=== PATIENT | male | born 1975 | race Caucasian/White ===

== ENCOUNTER 2020-06-06 17:22 | Inpatient (IN) | payer BC ==
--- NOTE | 2020-06-06 17:46 | ED ---
General Adult HPI - General Chief complaint: Shortness of Breath Stated complaint: COVID Time Seen by Provider: 06/06/20 17:41 Source: patient, EMS Mode of arrival: EMS Limitations: no limitations - History of Present Illness Initial comments: Patient presents the ED by ambulance for evaluation. Patient states that he was exposed to a coworker who tested positive for Covid about one week ago, and he states that he has had symptoms of fever, cough and dyspnea for the past 3 days or so. Patient denies having any other symptoms or complaints. Patient denies having any pain, headache, focal neuro deficit, sore throat, otalgia, loss of smell or taste, chest pain, hemoptysis, palpitations, dizziness, abdominal pain, nausea/vomiting/diarrhea, dysuria/hematuria/urinary frequency/urinary symptoms, leg or calf swelling or pain, or any other symptoms or complaints. - Related Data Home Medications Medication Instructions Recorded Confirmed No Known Home Medications 06/06/20 06/06/20 Allergies Allergy/AdvReac Type Severity Reaction Status Date / Time Penicillins Allergy Rash/Hives Verified 06/06/20 19:53 Review of Systems ROS Statement: Those systems with pertinent positive or pertinent negative responses have been documented in the HPI. ROS Other: All systems not noted in ROS Statement are negative. Past Medical History Past Medical History: No Reported History Additional Past Medical History / Comment(s): cleft palatte History of Any Multi-Drug Resistant Organisms: None Reported Additional Past Surgical History / Comment(s): cleft palatte repair Past Psychological History: No Psychological Hx Reported Smoking Status: Never smoker Past Alcohol Use History: None Reported Past Drug Use History: None Reported General Exam Limitations: no limitations General appearance: alert, in no apparent distress Head exam: Present: atraumatic, normocephalic Eye exam: Present: normal appearance, EOMI ENT exam: Present: normal oropharynx, mucous membranes moist Neck exam: Present: other (Trachea is in midline). Absent: tenderness, meningismus Respiratory exam: Present: normal lung sounds bilaterally. Absent: respiratory distress, wheezes, rales, rhonchi, stridor Cardiovascular Exam: Present: regular rate, normal rhythm, normal heart sounds, other (Normal radial pulses bilaterally) GI/Abdominal exam: Present: soft, other (Obese abdomen). Absent: tenderness, guarding Extremities exam: Present: other (Negative Homans sign bilaterally). Absent: tenderness, pedal edema, calf tenderness Neurological exam: Present: alert, oriented X3. Absent: motor sensory deficit Psychiatric exam: Present: normal affect, normal mood Skin exam: Present: warm, dry, intact, normal color Course Vital Signs 06/06/20 06/06/20 06/06/20 17:38 18:40 19:00 Temperature 101.5 F H 101.5 F H Pulse Rate 103 H 92 90 Respiratory 22 20 20 Rate Blood Pressure 158/85 144/74 138/84 O2 Sat by Pulse 97 94 L 95 Oximetry 06/06/20 19:23 Temperature Pulse Rate Respiratory 22 Rate Blood Pressure O2 Sat by Pulse Oximetry - Reevaluation(s) Reevaluation #1: 06/06/20 19:49 Patient denies development of any new symptoms while in the ED. Patient remains alert and breathing comfortably. Patient is aware of his test results, and he agrees with hospital admission at this time. 06/06/20 19:53 Case, H&P, test results and ED management were discussed with RACHEL Payan. She accepts hospital admission on behalf of herself and Dr. Price. She has no further recommendations at this time. EKG Findings - EKG Comments: EKG Findings:: Normal sinus rhythm, ventricular rate of 94 bpm, no ectopy, normal NE and QRS intervals, normal QT interval, leftward axis, no ST or T-wave abnormality Medical Decision Making - Medical Decision Making I suspect that the patient likely has coronavirus infection (his test result is still pending at this time). Patient also has chest x-ray findings of pneumonia. Will admit the patient to the hospital for IV antibiotic treatment and close monitoring. RACHEL Payan has accepted hospital admission. - Lab Data Result diagrams: 06/06/20 18:39 06/06/20 18:39 Lab Results 06/06/20 06/06/20 06/06/20 Range/Units 18:39 18:39 18:39 WBC 5.8 (3.8-10.6) k/uL RBC 4.98 (4.30-5.90) m/uL Hgb 13.8 (13.0-17.5) gm/dL Hct 42.6 (39.0-53.0) % MCV 85.6 (80.0-100.0) fL MCH 27.8 (25.0-35.0) pg MCHC 32.5 (31.0-37.0) g/dL RDW 13.3 (11.5-15.5) % Plt Count 180 (150-450) k/uL Neutrophils % 69 % Lymphocytes % 24 % Monocytes % 6 % Eosinophils % 0 % Basophils % 1 % Neutrophils # 4.0 (1.3-7.7) k/uL Lymphocytes # 1.4 (1.0-4.8) k/uL Monocytes # 0.3 (0-1.0) k/uL Eosinophils # 0.0 (0-0.7) k/uL Basophils # 0.0 (0-0.2) k/uL PT 10.7 (9.0-12.0) sec INR 1.0 (<1.2) APTT 30.2 H (22.0-30.0) sec D-Dimer 0.43 (<0.60) mg/L FEU Sodium 135 L (137-145) mmol/L Potassium 4.2 (3.5-5.1) mmol/L Chloride 100 (98-107) mmol/L Carbon Dioxide 26 (22-30) mmol/L Anion Gap 9 mmol/L BUN 9 (9-20) mg/dL Creatinine 0.51 L (0.66-1.25) mg/dL Est GFR (CKD-EPI)AfAm >90 (>60 ml/min/1.73 sqM) Est GFR (CKD-EPI)NonAf >90 (>60 ml/min/1.73 sqM) Glucose 109 H (74-99) mg/dL Plasma Lactic Acid Yousif (0.7-2.0) mmol/L Calcium 8.2 L (8.4-10.2) mg/dL Magnesium 2.1 (1.6-2.3) mg/dL Total Bilirubin 0.7 (0.2-1.3) mg/dL AST 38 (17-59) U/L ALT 36 (4-49) U/L Alkaline Phosphatase 52 (38-126) U/L Lactate Dehydrogenase 916 H (313-618) U/L C-Reactive Protein 69.5 H (<10.0) mg/L Total Protein 6.7 (6.3-8.2) g/dL Albumin 3.7 (3.5-5.0) g/dL Influenza Type A RNA (Not Detectd) Influenza Type B (PCR) (Not Detectd) 06/06/20 06/06/20 Range/Units 18:39 19:00 WBC (3.8-10.6) k/uL RBC (4.30-5.90) m/uL Hgb (13.0-17.5) gm/dL Hct (39.0-53.0) % MCV (80.0-100.0) fL MCH (25.0-35.0) pg MCHC (31.0-37.0) g/dL RDW (11.5-15.5) % Plt Count (150-450) k/uL Neutrophils % % Lymphocytes % % Monocytes % % Eosinophils % % Basophils % % Neutrophils # (1.3-7.7) k/uL Lymphocytes # (1.0-4.8) k/uL Monocytes # (0-1.0) k/uL Eosinophils # (0-0.7) k/uL Basophils # (0-0.2) k/uL PT (9.0-12.0) sec INR (<1.2) APTT (22.0-30.0) sec D-Dimer (<0.60) mg/L FEU Sodium (137-145) mmol/L Potassium (3.5-5.1) mmol/L Chloride (98-107) mmol/L Carbon Dioxide (22-30) mmol/L Anion Gap mmol/L BUN (9-20) mg/dL Creatinine (0.66-1.25) mg/dL Est GFR (CKD-EPI)AfAm (>60 ml/min/1.73 sqM) Est GFR (CKD-EPI)NonAf (>60 ml/min/1.73 sqM) Glucose (74-99) mg/dL Plasma Lactic Acid Yousif 1.6 (0.7-2.0) mmol/L Calcium (8.4-10.2) mg/dL Magnesium (1.6-2.3) mg/dL Total Bilirubin (0.2-1.3) mg/dL AST (17-59) U/L ALT (4-49) U/L Alkaline Phosphatase (38-126) U/L Lactate Dehydrogenase (313-618) U/L C-Reactive Protein (<10.0) mg/L Total Protein (6.3-8.2) g/dL Albumin (3.5-5.0) g/dL Influenza Type A RNA Not Detected (Not Detectd) Influenza Type B (PCR) Not Detected (Not Detectd) - Radiology Data Radiology results: image reviewed (Chest x-ray: Bilateral pulmonary infiltrates consistent with pneumonia, cardiomegaly) Disposition Clinical Impression: Pneumonia Disposition: ADMITTED IP TO THIS [facility] Condition: Stable Is patient prescribed a controlled substance at d/c from ED?: No Referrals: Bishop Iglesias MD [Primary Care Provider] - 1-2 days Time of Disposition: 19:53
[2020-06-06] MEDS ORDERED: ACETAMINOPHEN TAB 500 MG TAB PO STA (17:49)
[2020-06-06 19:00] LABS: Basophils % (A) 1 %; Eosinophils % (A) 0 %; HCT 42.6 % (39.0-53.0); HGB 13.8 gm/dL (13.0-17.5); Lymphocytes # (A) 1.4 k/uL (1.0-4.8); Lymphocytes % (A) 24 %; MCH 27.8 pg (25.0-35.0); MCHC 32.5 g/dL (31.0-37.0); MCV 85.6 fL (80.0-100.0); Mean Platelet Volume 8.3; Monocytes # (A) 0.3 k/uL (0-1.0); Monocytes % (A) 6 %; Neutrophils % (A) 69 %; Platelet Count 180 k/uL (150-450); RBC 4.98 m/uL (4.30-5.90); RDW 13.3 % (11.5-15.5); WBC 5.8 k/uL (3.8-10.6)
--- NOTE | 2020-06-06 19:06 | XR ---
EXAMINATION TYPE: XR chest 1V portable DATE OF EXAM: 06/06/2020 COMPARISON: NONE HISTORY: Cough and congestion TECHNIQUE: Single view FINDINGS: Heart is enlarged. There is some patchy bilateral airspace infiltrates in the mid and lower lung lopez. Pulmonary vascularity is difficult to evaluate. I do not suspect heart failure. There i s no sign of pleural effusion. Exam limited by patient's size. IMPRESSION: Bilateral pulmonary infiltrates consistent with pneumonia. Cardiomegaly. No definite hear t failure seen.
[2020-06-06 19:15] LABS: ALT 36 U/L (4-49); AST 38 U/L (17-59); African American GFR (CKD) >90 (>60 ml/min/1.73 sqM); Albumin 3.7 g/dL (3.5-5.0); Alkaline Phosphatase 52 U/L (38-126); Anion Gap 9 mmol/L; Blood Urea Nitrogen 9 mg/dL (9-20); C Reactive Protein 69.5 mg/L (<10.0); Calcium 8.2 mg/dL (8.4-10.2); Carbon Dioxide 26 mmol/L (22-30); Chloride 100 mmol/L (98-107); Glucose 109 mg/dL (74-99); LDH 916 U/L (313-618); Magnesium 2.1 mg/dL (1.6-2.3); Non-African American GFR(CKD) >90 (>60 ml/min/1.73 sqM); Potassium 4.2 mmol/L (3.5-5.1); Sodium 135 mmol/L (137-145); Total Bilirubin 0.7 mg/dL (0.2-1.3); Total Protein 6.7 g/dL (6.3-8.2)
[2020-06-06] MEDS ORDERED: AZITHROMYCIN 500 MG in SODIUM CHLORIDE 0.9% 250 ML IVPB STA (19:17)
[2020-06-06 19:46] LABS: D-Dimer 0.43 mg/L FEU (<0.60); Partial Thromboplastin Time 30.2 sec (22.0-30.0); Prothrombin Time 10.7 sec (9.0-12.0)
[2020-06-06] MEDS ORDERED: SODIUM CHLORIDE 0.9% 1,000 ML IV ONE (19:49)
[2020-06-06] MEDS: SODIUM CHLORIDE 0.9% 1,000 ML IV SCH (21:27)
[2020-06-07] MEDS: IBUPROFEN 800 MG TAB PO PRN ×2 (02:07→11:24)
[2020-06-07] MEDS: SODIUM CHLORIDE 0.9% 1,000 ML IV SCH ×3 (05:35→21:34)
[2020-06-07 06:13] LABS: HGB 13.8 gm/dL (13.0-17.5); MCHC 32.2 g/dL (31.0-37.0); Mean Platelet Volume 7.5; Platelet Count 156 k/uL (150-450); RBC 4.77 m/uL (4.30-5.90); RDW 13.2 % (11.5-15.5); WBC 6.1 k/uL (3.8-10.6)
[2020-06-07 07:03] LABS: Band Neutrophils % 11 %; Monocytes # (M) 0.37 k/uL (0-1.0); Neutrophils % (M) 47 %; Nucleated Red Blood Cells 0 /100 WBC (0-0); Total Cells Counted 100
[2020-06-07 10:54] LABS: African American GFR (CKD) 131.2 (60.0-200.0); BUN/Creat Ratio 14.29 Ratio (12.00-20.00); Non-African American GFR(CKD) 113.2 (60.0-200.0); Potassium 4.4 mmol/L (3.5-5.5)
--- NOTE | 2020-06-07 14:34 | P.HPIM ---
History of Present Illness Given with compensative shortness of breath, fever. Patient states that he was exposed to a coworker who tested positive for Covid about one week ago, and he states that he has had symptoms of fever, cough and dyspnea for the past 3 days or so. Patient denies having any other symptoms or complaints. Patient denies having any pain, headache, focal neuro deficit, sore throat, otalgia, loss of smell or taste, chest pain, hemoptysis, palpitations, dizziness, abdominal pain, nausea/vomiting/diarrhea, dysuria/hematuria/urinary frequency/urinary symptoms, leg or calf swelling or pain, or any other symptoms or complaints. She had a chest x-ray which showed bilateral pneumonia. Patient is presently on 3 L of oxygen. Patient was given a dose of Rocephin and azithromycin. Patient was started on Decadron, Pepcid and Lovenox. Review of Systems REVIEW OF SYSTEMS: CONSTITUTIONAL: No fever, no malaise, no fatigue. HEENT: No recent visual problems or hearing problems. Denied any sore throat. CARDIOVASCULAR: No chest pain, orthopnea, PND, no palpitations, no syncope. PULMONARY: Mentioned in HPI GASTROINTESTINAL: No diarrhea, no nausea, no vomiting, no abdominal pain. NEUROLOGICAL: No headaches, no weakness, no numbness. HEMATOLOGICAL: Denies any bleeding or petechiae. GENITOURINARY: Denies any burning micturition, frequency, or urgency. MUSCULOSKELETAL/RHEUMATOLOGICAL: Denies any joint pain, swelling, or any muscle pain. ENDOCRINE: Denies any polyuria or polydipsia. The rest of the 14-point review of systems is negative. Past Medical History Past Medical History: No Reported History Additional Past Medical History / Comment(s): Cleft palette History of Any Multi-Drug Resistant Organisms: None Reported Additional Past Surgical History / Comment(s): Cleft palatte repair Past Anesthesia/Blood Transfusion Reactions: No Reported Reaction Past Psychological History: No Psychological Hx Reported Smoking Status: Never smoker Past Alcohol Use History: None Reported Past Drug Use History: None Reported Medications and Allergies Home Medications Medication Instructions Recorded Confirmed Type No Known Home Medications 06/06/20 06/06/20 History Allergies Allergy/AdvReac Type Severity Reaction Status Date / Time Penicillins Allergy Rash/Hives Verified 06/06/20 19:53 Physical Exam Vitals: Vital Signs Temp Pulse Pulse Resp BP BP Pulse Ox 10/12/20 14:29 99.0 F 87 20 138/66 92 L 06/07/20 11:25 99.7 F H 06/07/20 07:00 98.5 F 75 26 H 133/56 94 L 06/07/20 05:30 98.3 F 06/07/20 02:30 101.9 F H 06/07/20 01:26 103.1 F H 93 20 144/68 93 L 06/06/20 21:10 99.3 F 85 20 135/80 96 06/06/20 20:36 86 20 129/76 96 06/06/20 20:00 100.0 F H 84 20 142/83 96 06/06/20 19:23 22 06/06/20 19:00 90 20 138/84 95 06/06/20 18:40 101.5 F H 92 20 144/74 94 L 06/06/20 17:38 101.5 F H 103 H 22 158/85 97 Intake and Output 06/06/20 06/07/20 06/07/20 22:59 06:59 14:59 Intake Total 1000 Balance 1000 Intake: Amount of Fluid Infused ( 1000 ml) Other: Voiding Method Toilet # Voids 1 2 Weight 124.738 kg PHYSICAL EXAMINATION: GENERAL: The patient is alert and oriented x3, not in any acute distress. Obese HEENT: Pupils are round and equally reacting to light. EOMI. No scleral icterus. No conjunctival pallor. Normocephalic, atraumatic. No pharyngeal erythema. No thyromegaly. CARDIOVASCULAR: S1 and S2 present. No murmurs, rubs, or gallops. PULMONARY: Fair entry into bilateral lung lopez no significant wheezing or crackles were appreciated ABDOMEN: Soft, nontender, nondistended, normoactive bowel sounds. No palpable organomegaly. MUSCULOSKELETAL: No joint swelling or deformity. EXTREMITIES: No cyanosis, clubbing, or pedal edema. NEUROLOGICAL: Gross neurological examination did not reveal any focal deficits. SKIN: No rashes. Results CBC & Chem 7: 06/07/20 05:37 06/07/20 05:37 Labs: Abnormal Lab Results - Last 24 Hours (Table) 06/06/20 06/06/20 06/06/20 Range/Units 18:39 18:39 18:39 APTT 30.2 H (22.0-30.0) sec Sodium 135 L (137-145) mmol/L Creatinine 0.51 L (0.66-1.25) mg/dL Glucose 109 H (74-99) mg/dL Calcium 8.2 L (8.4-10.2) mg/dL Ferritin 1111.0 H (22.0-322.0) ng/mL Lactate Dehydrogenase 916 H (313-618) U/L C-Reactive Protein 69.5 H (<10.0) mg/L Procalcitonin 0.37 H (0.02-0.09) ng/mL 06/07/20 Range/Units 05:37 APTT (22.0-30.0) sec Sodium (137-145) mmol/L Creatinine (0.66-1.25) mg/dL Glucose (74-99) mg/dL Calcium 8.0 L (8.4-10.2) mg/dL Ferritin (22.0-322.0) ng/mL Lactate Dehydrogenase (313-618) U/L C-Reactive Protein (<10.0) mg/L Procalcitonin (0.02-0.09) ng/mL Thrombosis Risk Factor Assmnt - Choose All That Apply Any of the Below Risk Factors Present?: Yes Each Factor Represents 1 point: Age 41-60 years Other Risk Factors: No Other congenital or acquired thrombophilia - If yes, enter type in comment: No Thrombosis Risk Factor Assessment Total Risk Factor Score: 1 Thrombosis Risk Factor Assessment Level: Low Risk Assessment and Plan Plan: -Bilateral pneumonia, sepsis secondary to pneumonia: Most probably secondary to Covid 19, patient had a positive rapid test as an outpatient. In awaiting PCR. Patient will be started on Decadron, Lovenox, Pepcid. infectious disease and pulmonary will be consulted. And now will continue in the above-mentioned antibiotics. Still get the coronavirus testing if it's positive Rocephin can be discontinued. -Acute hypoxic respiratory failure: Secondary to Covid 19 pneumonitis and patient had a normal d-dimer. -Morbid obesity -DVT prophylaxis and GI prophylaxis as mentioned
[2020-06-07] MEDS: ENOXAPARIN 40 MG/0.4 ML SYRINGE SQ SCH (15:06)
[2020-06-07] MEDS: AZITHROMYCIN 500 MG TAB PO SCH (15:06)
[2020-06-07] MEDS: dexAMETHasone 4 MG TAB PO SCH (15:07)
[2020-06-07] MEDS: FAMOTIDINE 20 MG TAB PO SCH (21:32)
--- NOTE | 2020-06-07 23:03 | P.CONS ---
History of Present Illness - Reason for Consult Consult date: 06/07/20 Possible Covid Requesting physician: Sylwia Price - Chief Complaint Cough and fever x 3 days - History of Present Illness Patient is 44-year-old male Presenting to the ER yesterday for increasing shortness of breath cough and fever the symptom has going on for about 3 days apparently the patient has been exposed to his coworker whose was diagnosed with a covid he was not very clear if the coworker also has covid infection, patient has been complaining of increasing shortness of breath also have a cough which is moderate in intensity and is dry in nature not bringing up any sputum denies significant chest pain has been running a fever of 101F with these symptoms the patient presented to hospital on arrival. The patient was febrile with temperature 101.1F, patient had did have a some hypoxemia with O2 sats 92% requiring supplemental oxygen patient did have a normal white count and no lymphopenia did have normal liver enzymes he did have elevated CRP as well as Propulsid to chest x-ray with bilateral infiltrate suspicious for pneumonia p jensient has been admitted to the hospital he was started on Rocephin and Zithromax infectious disease was consulted for further management of antibiotic therapy Review of Systems Positive point has been mentioned in the HPI rest of the systems are negative Past Medical History Past Medical History: No Reported History Additional Past Medical History / Comment(s): Cleft palette History of Any Multi-Drug Resistant Organisms: None Reported Additional Past Surgical History / Comment(s): Cleft palatte repair Past Anesthesia/Blood Transfusion Reactions: No Reported Reaction Past Psychological History: No Psychological Hx Reported Smoking Status: Never smoker Past Alcohol Use History: None Reported Past Drug Use History: None Reported Medications and Allergies Home Medications Medication Instructions Recorded Confirmed Type No Known Home Medications 06/06/20 06/06/20 History Allergies Allergy/AdvReac Type Severity Reaction Status Date / Time Penicillins Allergy Rash/Hives Verified 06/06/20 19:53 Physical Exam Vitals: Vital Signs Temp Pulse Pulse Resp BP BP Pulse Ox 06/07/20 14:29 99.0 F 87 20 138/66 92 L 06/07/20 11:25 99.7 F H 06/07/20 07:00 98.5 F 75 26 H 133/56 94 L 06/07/20 05:30 98.3 F 06/07/20 02:30 101.9 F H 06/07/20 01:26 103.1 F H 93 20 144/68 93 L 06/06/20 21:10 99.3 F 85 20 135/80 96 06/06/20 20:36 86 20 129/76 96 06/06/20 20:00 100.0 F H 84 20 142/83 96 06/06/20 19:23 22 06/06/20 19:00 90 20 138/84 95 06/06/20 18:40 101.5 F H 92 20 144/74 94 L 06/06/20 17:38 101.5 F H 103 H 22 158/85 97 Intake and Output 06/07/20 06/07/20 06/07/20 06:59 14:59 22:59 Other: Voiding Method Toilet # Voids 2 GENERAL DESCRIPTION: Middle-aged male lying in bed, no distress. No tachypnea or accessory muscle of respiration use. HEENT: Shows Pallor , no scleral icterus. Oral mucous membrane is dry. No pharyngeal erythema or thrush NECK: Trachea central, no thyromegaly. LUNGS: Unlabored breathing. Coarse breath sound bilaterally. No wheeze or crackle. HEART: S1, S2, regular rate and rhythm. No loud murmur ABDOMEN: Soft, no tenderness , guarding or rigidity, no organomegaly EXTREMITIES: No edema of feet. SKIN: No rash, no masses palpable. NEUROLOGICAL: The patient is awake, alert, oriented x3, mood and affect normal. Results CBC & Chem 7: 06/07/20 05:37 06/07/20 05:37 Labs: Abnormal Lab Results - Last 24 Hours (Table) 06/06/20 06/06/20 06/06/20 Range/Units 18:39 18:39 18:39 APTT 30.2 H (22.0-30.0) sec Sodium 135 L (137-145) mmol/L Creatinine 0.51 L (0.66-1.25) mg/dL Glucose 109 H (74-99) mg/dL Calcium 8.2 L (8.4-10.2) mg/dL Ferritin 1111.0 H (22.0-322.0) ng/mL Lactate Dehydrogenase 916 H (313-618) U/L C-Reactive Protein 69.5 H (<10.0) mg/L Procalcitonin 0.37 H (0.02-0.09) ng/mL 06/07/20 Range/Units 05:37 APTT (22.0-30.0) sec Sodium (137-145) mmol/L Creatinine (0.66-1.25) mg/dL Glucose (74-99) mg/dL Calcium 8.0 L (8.4-10.2) mg/dL Ferritin (22.0-322.0) ng/mL Lactate Dehydrogenase (313-618) U/L C-Reactive Protein (<10.0) mg/L Procalcitonin (0.02-0.09) ng/mL Assessment and Plan Assessment: 1- patient presented to hospital with increasing shortness of breath cough which is dry in nature and did have a fever with evidence of bilateral infiltrate with concern for possible viral/Covid pneumonia however the patient did have elevated will consider been and possibly concerning for atypical bacterial pneumonia 2-penicillin ALLERGY (1) Pneumonia Current Visit: Yes Status: Acute Code(s): J18.9 - PNEUMONIA, UNSPECIFIED ORGANISM SNOMED Code(s): 869526896 Plan: 1- we will wait for the Covid testing to be completed 2- we will obtain sputum for Gram stain and culture and check urine for Le gionella antigen 3-patient is currently covered with dexamethasone, Lovenox will add zinc 4- continue with Rocephin and Zithromax 5- droplet isolation and respiratory support We will follow on clinical condition and cultures to further adjust medication if needed Thank you for this consultation will follow this patient with you Time with Patient: Greater than 30
--- NOTE | 2020-06-08 07:48 | XR ---
EXAMINATION TYPE: XR chest 1V portable DATE OF EXAM: 06/08/2020 COMPARISON: 06/06/2020 HISTORY: Chest pain TECHNIQUE: Single frontal view of the chest is obtained. FINDINGS: Perihilar and basilar infiltrates persist. The cardiac silhouette size is within normal limits. The osseous structures are intact. IMPRESSION: 1. Persistent features of pneumonia. Follow-up until resolution advised.
--- NOTE | 2020-06-08 08:00 | P.PN ---
Subjective Progress Note Date: 06/08/20 Principal diagnosis: Pneumonia with positive Covid-19 testing The patient is here essentially because of significant problems related to pneumonia. Positive exposure which was positive by testing yesterday. The patient states he feels much better. No significant nausea, vomiting or diarrhea. Objective - Vital Signs Vital signs: Vital Signs Temp 99.0 F 06/08/20 07:00 Pulse 71 06/08/20 07:00 Resp 22 06/08/20 07:00 BP 126/68 06/08/20 07:00 Pulse Ox 92 L 06/08/20 07:00 Intake & Output 06/07/20 06/08/20 06/08/20 18:59 06:59 18:59 Intake Total 300 Balance 300 Intake: Intake, IV Titration 300 Amount Sodium Chloride 0.9% 1, 300 000 ml @ 100 mls/hr IV . Q10H [facility] Rx#:[id number] Other: Voiding Method Toilet # Voids 3 2 - Constitutional General appearance: Present: obese - EENT Eyes: Absent: abnormal pupil - Neck Neck: Absent: lymphadenopathy - Respiratory Respiratory: bilateral: CTA, diminished - Cardiovascular Rhythm: regular Heart sounds: normal: S1, S2 Abnormal Heart Sounds: Absent: S3 Gallop - Integumentary Integumentary: Absent: jaundiced - Psychiatric Psychiatric: Present: A&O x's 3, appropriate affect - Labs CBC & Chem 7: 06/07/20 05:37 06/07/20 05:37 Labs: Abnormal Lab Results - Last 24 Hours (Table) 06/06/20 06/07/20 Range/Units 18:39 05:37 Calcium 8.0 L (8.7-10.3) mg/dL Coronavirus (PCR) Detected H (Not Detected) Microbiology - Last 24 Hours (Table) 06/06/20 18:39 Blood Culture - Preliminary Blood No Growth after 24 hours Assessment and Plan (1) COVID-19 Current Visit: Yes Status: Acute Code(s): U07.1 - COVID-19 SNOMED Code(s): 479602909 (2) Pneumonia Current Visit: Yes Status: Acute Code(s): J18.9 - PNEUMONIA, UNSPECIFIED ORGANISM SNOMED Code(s): 220846714 Plan: Continue current regimen of treatment with supportive care. Check CBC and CMP in a.m. Appreciate consultants input. Time with Patient: Greater than 30
[2020-06-08] MEDS: FAMOTIDINE 20 MG TAB PO SCH ×2 (08:01→20:04)
[2020-06-08] MEDS: AZITHROMYCIN 500 MG TAB PO SCH (08:02)
[2020-06-08] MEDS: ZINC SULFATE 220 MG CAP PO SCH (08:02)
[2020-06-08] MEDS: ENOXAPARIN 40 MG/0.4 ML SYRINGE SQ SCH (08:02)
[2020-06-08] MEDS: dexAMETHasone 4 MG TAB PO SCH (08:02)
--- NOTE | 2020-06-08 10:48 | P.CNPUL ---
History of Present Illness Consult date: 06/08/20 Reason for consult: dyspnea, cough, pneumonia Chief complaint: cough shortness of breath for 4 days History of present illness: this is a 44-year-old male seen eval reexamined, patient came into the hospital with a three-day of progressive cough shortness of breath x-ray admitted consistent with bilateral pneumonia patient has been admitted to hospital and has been on broad-spectrum antibiotics today feeling much better compared to, repeat chest x-ray still showing a pneumonia, blood cultures have been no growth, patient does have a history of exposure to covid, his test came back positive for covid 19, patient on dexamethasone broad-spectrum antibiotics will defer starting Remdesevir to infectious disease services Review of Systems All systems: negative Past Medical History Past Medical History: No Reported History Additional Past Medical History / Comment(s): Cleft palette History of Any Multi-Drug Resistant Organisms: None Reported Additional Past Surgical History / Comment(s): Cleft palatte repair Past Anesthesia/Blood Transfusion Reactions: No Reported Reaction Past Psychological History: No Psychological Hx Reported Smoking Status: Never smoker Past Alcohol Use History: None Reported Past Drug Use History: None Reported - Past Family History Mother History Unknown: Yes Medications and Allergies Home Medications Medication Instructions Recorded Confirmed Type No Known Home Medications 06/06/20 06/06/20 History Allergies Allergy/AdvReac Type Severity Reaction Status Date / Time Penicillins Allergy Rash/Hives Verified 06/06/20 19:53 Physical Exam Vitals: Vital Signs Temp Pulse Resp BP Pulse Ox 06/08/20 07:00 99.0 F 71 22 126/68 92 L 06/08/20 00:55 98.8 F 70 16 135/70 98 06/07/20 19:20 99.7 F H 78 16 137/74 06/07/20 14:29 99.0 F 87 20 138/66 92 L 06/07/20 11:25 99.7 F H Intake and Output 06/07/20 06/08/20 06/08/20 22:59 06:59 14:59 Intake Total 300 Balance 300 Intake: Intake, IV Titration 300 Amount Sodium Chloride 0.9% 1, 300 000 ml @ 100 mls/hr IV . Q10H [facility] Rx#:[id number] Other: Voiding Method Toilet Toilet # Voids 2 - Constitutional General appearance: average body habitus, morbidly obese - EENT Eyes: EOMI, PERRLA Ears: bilateral: normal - Neck Carotids: bilateral: upstroke normal Thyroid: bilateral: normal size - Respiratory Respiratory: bilateral: diminished - Cardiovascular Rhythm: regular Heart sounds: normal: S1, S2 - Gastrointestinal General gastrointestinal: normal bowel sounds - Neurologic Neurologic: CNII-XII intact - Musculoskeletal Musculoskeletal: gait normal, generalized weakness, strength equal bilaterally - Psychiatric Psychiatric: A&O x's 3, appropriate affect, intact judgment & insight Results - Laboratory Findings CBC and BMP: 06/07/20 05:37 06/07/20 05:37 PT/INR, D-dimer PT 10.7 sec (9.0-12.0) 06/06/20 18:39 INR 1.0 (<1.2) 06/06/20 18:39 D-Dimer 0.37 mg/L FEU (<0.60) 06/08/20 08:09 Abnormal lab findings: Abnormal Labs 06/06/20 06/06/20 06/06/20 18:39 18:39 18:39 APTT 30.2 H Sodium 135 L Creatinine 0.51 L Glucose 109 H Calcium 8.2 L Ferritin 1111.0 H Lactate Dehydrogenase 916 H C-Reactive Protein 69.5 H Procalcitonin Coronavirus (PCR) Detected H 06/06/20 06/07/20 18:39 05:37 APTT Sodium Creatinine Glucose Calcium 8.0 L Ferritin Lactate Dehydrogenase C-Reactive Protein Procalcitonin 0.37 H Coronavirus (PCR) - Diagnostic Findings Chest x-ray: report reviewed, image reviewed (finding as noted above) Assessment and Plan Assessment: Covid 19 pneumonia Cough shortness of breath related to that Morbid obesity Plan: broad-spectrum antibiotics Dexamethasone Anticoagulants Will discuss with ID service about starting Remdesevir continue droplet and respiratory isolation Time with Patient: Greater than 30
[2020-06-08] MEDS: SODIUM CHLORIDE 0.9% 1,000 ML IV SCH ×2 (10:53→20:04)
[2020-06-08] MEDS ORDERED: REMDESIVIR (EUA) 200 MG in SODIUM CHLORIDE 0.9% 250 ML IVPB ONE (15:00)
[2020-06-08 22:03] LABS: C Reactive Protein 11.7 mg/dL (0.0-0.8)
--- NOTE | 2020-06-09 00:42 | PN ---
PROGRESS NOTE DATE OF SERVICE: 06/08/2020 REASON FOR FOLLOWUP: Acute COVID-19 pneumonia. INTERVAL HISTORY: The patient's fever has slightly improved, still has a T-max of 99.7. Breathing comfortably though still requiring supplemental oxygen. Denies having chest pain. Continued to have a cough, moderate in intensity, but not bringing up any sputum. No nausea, no vomiting. No abdominal pain or diarrhea. PHYSICAL EXAMINATION: Blood pressure 162/96, pulse of 63, temperature 97.3. He is 96% on 3 L nasal cannula. General description is a middle-aged male up in the bed in no distress. RESPIRATORY SYSTEM: Unlabored breathing, decreased breath sounds in the bases, no wheeze. HEART: S1, S2. Regular rate and rhythm. ABDOMEN: Soft, no tenderness. DIAGNOSTIC IMPRESSION AND PLAN: Patient with acute COVID-19 pneumonia. Patient had been started on remdesivir to continue with Lovenox, dexamethasone and will monitor his clinical course closely. Continue supportive care. MMODL / IJN: [id number] /
[2020-06-09 06:13] LABS: HCT 43.6 % (39.0-53.0); HGB 14.2 gm/dL (13.0-17.5); MCHC 32.5 g/dL (31.0-37.0); MCV 89.4 fL (80.0-100.0); Mean Platelet Volume 8.6; Platelet Count 231 k/uL (150-450); RBC 4.88 m/uL (4.30-5.90); RDW 13.2 % (11.5-15.5); WBC 9.5 k/uL (3.8-10.6)
--- NOTE | 2020-06-09 08:09 | P.PN ---
Subjective Principal diagnosis: Pneumonia with positive Covid-19 testing The patient is here essentially because of significant problems related to pneumonia. Positive [id number] exposure which was positive by testing yesterday. The patient states he feels much better. No significant nausea, vomiting or diarrhea. the patient feels much better than yesterday. Appreciate pulmonology and infectious disease consultation. No overt diarrhea noted. Objective - Vital Signs Vital signs: Vital Signs Temp 98.2 F 06/09/20 07:00 Pulse 67 06/09/20 07:00 Resp 20 06/09/20 07:00 BP 134/76 06/09/20 07:00 Pulse Ox 94 L 06/09/20 07:00 Intake & Output 06/08/20 06/09/20 06/09/20 18:59 06:59 18:59 Other: Voiding Method Toilet # Voids 4 2 - Constitutional General appearance: Present: morbidly obese - EENT Eyes: Absent: abnormal pupil - Neck Neck: Absent: lymphadenopathy - Respiratory Respiratory: bilateral: diminished - Cardiovascular Heart sounds: normal: S1, S2 Abnormal Heart Sounds: Absent: S3 Gallop - Gastrointestinal General gastrointestinal: Present: soft. Absent: tenderness - Integumentary Integumentary: Absent: rash - Neurologic Neurologic: Present: CNII-XII intact - Labs CBC & Chem 7: 06/09/20 05:20 06/07/20 05:37 Labs: Abnormal Lab Results - Last 24 Hours (Table) 06/08/20 06/08/20 Range/Units 05:43 05:43 Lactate Dehydrogenase 592 H (120-246) U/L C-Reactive Protein 11.7 H (0.0-0.8) mg/dL Procalcitonin 0.33 H (0.02-0.09) ng/mL Microbiology - Last 24 Hours (Table) 06/06/20 18:39 Blood Culture - Preliminary Blood No Growth after 48 hours Assessment and Plan (1) COVID-19 Current Visit: Yes Status: Acute Code(s): U07.1 - COVID-19 SNOMED Code(s): 735918808 (2) Pneumonia Current Visit: Yes Status: Acute Code(s): J18.9 - PNEUMONIA, UNSPECIFIED ORGANISM SNOMED Code(s): 449021160 Plan: Continue current regimen of treatment with supportive care. Question need for Remdesevir Check CBC and CMP in a.m. Appreciate consultants input. Time with Patient: Greater than 30
[2020-06-09] MEDS: ENOXAPARIN 40 MG/0.4 ML SYRINGE SQ SCH (08:25)
[2020-06-09] MEDS: FAMOTIDINE 20 MG TAB PO SCH ×2 (08:25→20:13)
[2020-06-09] MEDS: AZITHROMYCIN 500 MG TAB PO SCH (08:26)
[2020-06-09] MEDS: dexAMETHasone 4 MG TAB PO SCH (08:26)
[2020-06-09] MEDS: SODIUM CHLORIDE 0.9% 1,000 ML IV SCH ×2 (08:26→20:13)
[2020-06-09] MEDS: ZINC SULFATE 220 MG CAP PO SCH (08:26)
[2020-06-09 09:47] LABS: African American GFR (CKD) 150.6 (60.0-200.0); Albumin 3.7 g/dL (3.80-4.90); Albumin/Globulin Ratio 1.54 (1.60-3.17); Anion Gap 9.3 mmol/L (4.00-12.00); Calcium 8.7 mg/dL (8.7-10.3); Carbon Dioxide 26.7 mmol/L (21.6-31.8); Globulin 2.4 g/dL (1.6-3.3); Potassium 4.4 mmol/L (3.5-5.5); Total Bilirubin 0.4 mg/dL (0.3-1.2); Total Protein 6.1 g/dL (6.2-8.2)
--- NOTE | 2020-06-09 12:52 | CDI ---
Documentation Clarification Form Date: 06/09/2020 11:10:53 AM From: Roxanne Hoover RN CCDS Admit Date: 06/06/2020 07:53:00 PM Patient Name: Tamir Linton Visit Number: [id number] Discharge Date: ATTENTION: The Clinical Documentation Specialists (CDI) and [facility] Coding Staff appreciate your assistance in clarifying documentation. Please respond to the clarification below the line at the bottom and electronically sign. The CDI & [facility] Coding staff will review the response and follow-up if needed. Please note: Queries are made part of the Legal Health Record. If you have any questions, please contact the author of this message via ITS. Dr. Bishop Iglesias The diagnosis Sepsis was documented in the H&P 06/07 but is not noted in subsequent documentation. History/Risk Factors: 44-year-old male presents to the ED with fever, cough and dyspnea the patient had exposure to coworker having COVID 19. Medical history Obesity Clinical Indicators: 06/06 VSS: B/P: 158/85; HR: 103; RR: 22; SpO2: 97% room air 06/06 Labs: ptt 30.2; Na 135; Cr 0.51; Calcium 8.2; Ferritin 1111.0; LDH: 916; CRP: 69.5; Procalcitonin 0.37; Lactic 1.6; MELENDEZ Positive Treatment: 06/06 0.9ns 1L bolus followed by 100cchr; 06/06 Zithromax ivpb x1, 06/07 Zithromax po; Rocephin Ivpb daily; Dexamethasone 0.9ns 100cc/hr; 06/08 Zinc po daily 06/08 Remdesivir Ivpb x1; 06/09 Remdesivir Ivpb x4 bags. Please clarify if the Sepsis was Present/active this admission Treated and resolved this admission Ruled out-this is the correct dx Other, please specify Clinically unable to determine (Last Query Form Revision: April 2019) MTDD
[2020-06-09] MEDS: REMDESIVIR (EUA) 100 MG in SODIUM CHLORIDE 0.9% 250 ML IVPB SCH (16:31)
--- NOTE | 2020-06-10 02:12 | PN ---
PROGRESS NOTE DATE OF SERVICE: 06/09/2020 REASON FOR FOLLOWUP: COVID-19 pneumonia. INTERVAL HISTORY: The patient is currently afebrile. The patient is breathing comfortably compared to yesterday. The patient denies having any chest pain. He did have a mild cough. No sputum. No nausea, no vomiting. No abdominal pain, no diarrhea. PHYSICAL EXAMINATION: Blood pressure 146/70 with a pulse of 66, temperature 97.6. He is 97% on 3 L nasal cannula. General description is a middle-aged male up in the chair in no distress. RESPIRATORY SYSTEM: Unlabored breathing with diminished breath sounds. No wheeze. ABDOMEN: Soft. EXTREMITIES: No edema of the feet. LABS: Hemoglobin is 14.2, white count 9.5, BUN of 13, creatinine 0.5. DIAGNOSTIC IMPRESSION AND PLAN: Patient with acute COVID-19 pneumonia in this patient seemed to have shown clinical response to remdesivir, dexamethasone, Lovenox and zinc to continue along with respiratory support and monitor his clinical course closely. MMODL / IJN: [id number] /
[2020-06-10] MEDS: SODIUM CHLORIDE 0.9% 1,000 ML IV SCH ×2 (03:04→17:04)
[2020-06-10 06:59] LABS: HCT 42.4 % (39.0-53.0); HGB 13.4 gm/dL (13.0-17.5); MCH 28.2 pg (25.0-35.0); MCHC 31.5 g/dL (31.0-37.0); MCV 89.6 fL (80.0-100.0); Mean Platelet Volume 7.8; Platelet Count 259 k/uL (150-450); RBC 4.74 m/uL (4.30-5.90); RDW 13.5 % (11.5-15.5); WBC 9.6 k/uL (3.8-10.6)
--- NOTE | 2020-06-10 08:13 | P.PN ---
Subjective Principal diagnosis: Pneumonia with positive Covid-19 testing The patient is here essentially because of significant problems related to pneumonia. Positive [id number] exposure which was positive by testing yesterday. The patient states he feels much better. No significant nausea, vomiting or diarrhea. the patient feels much better than yesterday. Appreciate pulmonology and infectious disease consultation. No overt diarrhea noted. He slowly is improving and is not even emulating without O2. We will check also oximetry on room air in a.m. Objective - Vital Signs Vital signs: Vital Signs Temp 98.0 F 06/10/20 07:00 Pulse 61 06/10/20 07:00 Resp 20 06/10/20 07:00 BP 153/87 06/10/20 07:00 Pulse Ox 93 L 06/10/20 07:00 Intake & Output 06/09/20 06/10/20 06/10/20 18:59 06:59 18:59 Other: Voiding Method Toilet Toilet # Voids 4 2 - Constitutional General appearance: Present: morbidly obese - EENT Eyes: Absent: abnormal pupil - Neck Neck: Absent: lymphadenopathy - Respiratory Respiratory: right: wheezing, left: diminished - Cardiovascular Rhythm: regular Heart sounds: normal: S1, S2 Abnormal Heart Sounds: Absent: S3 Gallop - Gastrointestinal General gastrointestinal: Present: soft. Absent: tenderness - Labs CBC & Chem 7: 06/10/20 06:39 06/09/20 05:20 Labs: Abnormal Lab Results - Last 24 Hours (Table) 06/09/20 Range/Units 05:20 Creatinine 0.5 L (0.6-1.5) mg/dL BUN/Creatinine Ratio 26.00 H (12.00-20.00) Ratio Glucose 131 H (70-110) mg/dL AST 53 H (14-35) U/L ALT 68 H (10-49) U/L Total Protein 6.1 L (6.2-8.2) g/dL Albumin 3.70 L (3.80-4.90) g/dL Albumin/Globulin Ratio 1.54 L (1.60-3.17) g/dL Microbiology - Last 24 Hours (Table) 06/06/20 18:39 Blood Culture - Preliminary Blood No Growth after 72 hours Assessment and Plan (1) COVID-19 Current Visit: Yes Status: Acute Code(s): U07.1 - COVID-19 SNOMED Code(s): 138465996 (2) Pneumonia Current Visit: Yes Status: Acute Code(s): J18.9 - PNEUMONIA, UNSPECIFIED ORGANISM SNOMED Code(s): 103393463 Plan: Continue current regimen of treatment with supportive care. Check CBC and CMP in a.m. Appreciate consultants input. Hopefully anticipate discharge in next 24-48 hours
[2020-06-10] MEDS: dexAMETHasone 4 MG TAB PO SCH (08:18)
[2020-06-10] MEDS: ZINC SULFATE 220 MG CAP PO SCH (08:19)
[2020-06-10] MEDS: FAMOTIDINE 20 MG TAB PO SCH ×2 (08:19→19:49)
[2020-06-10] MEDS: AZITHROMYCIN 500 MG TAB PO SCH (08:19)
[2020-06-10] MEDS: ENOXAPARIN 40 MG/0.4 ML SYRINGE SQ SCH (08:19)
[2020-06-10 09:45] LABS: African American GFR (CKD) 150.6 (60.0-200.0); Albumin 3.5 g/dL (3.80-4.90); Albumin/Globulin Ratio 1.67 (1.60-3.17); Anion Gap 9.6 mmol/L (4.00-12.00); Calcium 8.5 mg/dL (8.7-10.3); Carbon Dioxide 29.4 mmol/L (21.6-31.8); Globulin 2.1 g/dL (1.6-3.3); Potassium 4.1 mmol/L (3.5-5.5); Total Bilirubin 0.5 mg/dL (0.3-1.2); Total Protein 5.6 g/dL (6.2-8.2)
--- NOTE | 2020-06-10 11:36 | XR ---
EXAMINATION TYPE: XR chest 1V portable DATE OF EXAM: 06/10/2020 COMPARISON: 06/08/2020 INDICATION: Pneumonia TECHNIQUE: Single frontal view of the chest is obtained. FINDINGS: The heart size is prominent. The pulmonary vasculature is normal. Mild infiltrate is in the periphery of the right midlung. Some scattered increased lung markings may be present, improved from recent comparison. IMPRESSION: 1. Peripheral right midlung infiltrate. 2. Additional peripheral infiltrates are improving. Correlate for atypical pneumonia.
--- NOTE | 2020-06-10 15:07 | P.PN ---
Subjective Progress Note Date: 06/10/20 Principal diagnosis: Covid 19 pneumonia Cough shortness of breath related to that Morbid obesity 06/10/2020, patient seen eval examined during the rounds labs reviewed medicati ons reviewed care plan discussed, respiratory status remains stable, oxygen saturation 93% 3 L, hemodynamic stable, remains afebrile, patient remains on Remdesevir along with anticoagulation and dexamethasone Objective - Vital Signs Vital signs: Vital Signs Temp 98.0 F 06/10/20 07:00 Pulse 61 06/10/20 08:00 Resp 20 06/10/20 08:00 BP 153/87 06/10/20 07:00 Pulse Ox 93 L 06/10/20 07:00 Intake & Output 06/09/20 06/10/20 06/10/20 18:59 06:59 18:59 Other: Voiding Method Toilet Toilet Toilet # Voids 4 2 2 - Exam - Constitutional General appearance: average body habitus, morbidly obese - EENT Eyes: EOMI, PERRLA Ears: bilateral: normal - Neck Carotids: bilateral: upstroke normal Thyroid: bilateral: normal size - Respiratory Respiratory: bilateral: diminished - Cardiovascular Rhythm: regular Heart sounds: normal: S1, S2 - Gastrointestinal General gastrointestinal: normal bowel sounds - Neurologic Neurologic: CNII-XII intact - Musculoskeletal Musculoskeletal: gait normal, generalized weakness, strength equal bilaterally - Psychiatric Psychiatric: A&O x's 3, appropriate affect, intact judgment & insight - Labs CBC & Chem 7: 06/10/20 06:39 06/10/20 06:39 Labs: Abnormal Lab Results - Last 24 Hours (Table) 06/10/20 Range/Units 06:39 Sodium 146 H (135-145) mmol/L Creatinine 0.5 L (0.6-1.5) mg/dL BUN/Creatinine Ratio 30.00 H (12.00-20.00) Ratio Calcium 8.5 L (8.7-10.3) mg/dL ALT 59 H (10-49) U/L Total Protein 5.6 L (6.2-8.2) g/dL Albumin 3.50 L (3.80-4.90) g/dL Microbiology - Last 24 Hours (Table) 06/06/20 18:39 Blood Culture - Preliminary Blood No Growth after 72 hours Assessment and Plan Assessment: Covid 19 pneumonia Cough shortness of breath related to that Morbid obesity Plan: broad-spectrum antibiotics Continue Dexamethasone to finish 10 days of therapy Anticoagulants Continue Remdesevir IV to finish 5 days of therapy continue droplet and respiratory isolation Time with Patient: Greater than 30
[2020-06-10] MEDS: REMDESIVIR (EUA) 100 MG in SODIUM CHLORIDE 0.9% 250 ML IVPB SCH (17:03)
--- NOTE | 2020-06-10 23:25 | PN ---
PROGRESS NOTE DATE OF SERVICE: 06/10/2020 REASON FOR FOLLOWUP: COVID-19 pneumonia. INTERVAL HISTORY: The patient is currently afebrile. The patient is breathing more comfortably. The patient denies having chest pain. He did have a cough, though decreased intensity, not bringing up any sputum. No nausea, no vomiting. No abdominal pain or diarrhea. PHYSICAL EXAMINATION: Blood pressure 155/88 with a pulse of 59, temperature 98.1. He is 97% on 3 L nasal cannula. General description is a middle-aged male up in the chair in no distress. RESPIRATORY SYSTEM: Unlabored breathing, decreased intense breath sounds. No wheeze. HEART: S1, S2. Regular rate and rhythm. ABDOMEN: Soft, no tenderness. LABS: Hemoglobin is 13.4, white count 9.6, BUN of 15, creatinine 0.5. DIAGNOSTIC IMPRESSION AND PLAN: Patient with acute COVID-19 pneumonia in this patient who seemed to have shown clinical improvement currently responding to the remdesivir, Lovenox, dexamethasone, to continue along with respiratory support and monitor clinical course closely. MMODL / IJN: [id number] /
[2020-06-11] MEDS: SODIUM CHLORIDE 0.9% 1,000 ML IV SCH ×3 (03:10→19:33)
--- NOTE | 2020-06-11 08:44 | P.PN ---
Subjective Principal diagnosis: Pneumonia with positive Covid-19 testing The patient is here essentially because of significant problems related to pneumonia. Positive [id number] exposure which was positive by testing yesterday. The patient states he feels much better. No significant nausea, vomiting or diarrhea. the patient feels much better than yesterday. Appreciate pulmonology and infectious disease consultation. No overt diarrhea noted. He slowly is improving and is now even ambulating with minimal oxygen. We will check also oximetry on room air in a.m. Objective - Vital Signs Vital signs: Vital Signs Temp 98.1 F 06/11/20 07:00 Pulse 66 06/11/20 07:00 Resp 18 06/10/20 20:15 BP 172/86 06/11/20 07:00 Pulse Ox 99 06/11/20 07:00 Intake & Output 06/10/20 06/11/20 06/11/20 18:59 06:59 18:59 Intake Total 180 Balance 180 Intake: Oral 180 Other: Voiding Method Toilet # Voids 2 1 - Constitutional General appearance: Present: morbidly obese - EENT Eyes: Absent: abnormal pupil - Respiratory Respiratory: bilateral: diminished - Cardiovascular Rhythm: regular Heart sounds: normal: S1, S2 Abnormal Heart Sounds: Absent: S3 Gallop - Integumentary Integumentary: Absent: cellulitis - Labs CBC & Chem 7: 06/10/20 06:39 06/10/20 06:39 Labs: Abnormal Lab Results - Last 24 Hours (Table) 06/10/20 Range/Units 06:39 Sodium 146 H (135-145) mmol/L Creatinine 0.5 L (0.6-1.5) mg/dL BUN/Creatinine Ratio 30.00 H (12.00-20.00) Ratio Calcium 8.5 L (8.7-10.3) mg/dL ALT 59 H (10-49) U/L Total Protein 5.6 L (6.2-8.2) g/dL Albumin 3.50 L (3.80-4.90) g/dL Microbiology - Last 24 Hours (Table) 06/06/20 18:39 Blood Culture - Preliminary Blood No Growth after 96 hours Assessment and Plan (1) COVID-19 Current Visit: Yes Status: Acute Code(s): U07.1 - COVID-19 SNOMED Code(s): 497623258 (2) Pneumonia Current Visit: Yes Status: Acute Code(s): J18.9 - PNEUMONIA, UNSPECIFIED ORGANISM SNOMED Code(s): 034017187 Plan: Continue current regimen of treatment with supportive care. Check CBC and CMP in a.m. Appreciate consultants input. The patient wants his Remdesivir to be finished in a.m. Hopefully anticipate discharge in next 24-48 hours
[2020-06-11] MEDS: FAMOTIDINE 20 MG TAB PO SCH ×2 (09:10→19:33)
[2020-06-11] MEDS: ZINC SULFATE 220 MG CAP PO SCH (09:10)
[2020-06-11] MEDS: dexAMETHasone 4 MG TAB PO SCH (09:10)
[2020-06-11] MEDS: AZITHROMYCIN 500 MG TAB PO SCH (09:10)
[2020-06-11] MEDS: ENOXAPARIN 40 MG/0.4 ML SYRINGE SQ SCH (09:10)
--- NOTE | 2020-06-11 11:12 | P.PN ---
Subjective Progress Note Date: 06/11/20 Principal diagnosis: Covid 19 pneumonia Cough shortness of breath related to that Morbid obesity 06/11/2020, patient seen eval examined during the rounds labs reviewed medicatio ns reviewed oxygen saturation continued to be stable on 2 L oxygen, less cough congestion is present breathing more comfortably, remains afebrile, blood pressure slightly high, medications reviewed 06/10/2020, patient seen eval examined during the rounds labs reviewed medications reviewed care plan discussed, respiratory status remains stable, oxygen saturation 93% 3 L, hemodynamic stable, remains afebrile, patient remains on Remdesevir along with anticoagulation and dexamethasone Objective - Vital Signs Vital signs: Vital Signs Temp 98.1 F 06/11/20 07:00 Pulse 66 06/11/20 07:00 Resp 18 06/10/20 20:15 BP 172/86 06/11/20 07:00 Pulse Ox 99 06/11/20 07:00 Intake & Output 06/10/20 06/11/20 06/11/20 18:59 06:59 18:59 Intake Total 180 Balance 180 Intake: Oral 180 Other: Voiding Method Toilet # Voids 2 1 - Exam - Constitutional General appearance: average body habitus, morbidly obese - EENT Eyes: EOMI, PERRLA Ears: bilateral: normal - Neck Carotids: bilateral: upstroke normal Thyroid: bilateral: normal size - Respiratory Respiratory: bilateral: diminished - Cardiovascular Rhythm: regular Heart sounds: normal: S1, S2 - Gastrointestinal General gastrointestinal: normal bowel sounds - Neurologic Neurologic: CNII-XII intact - Musculoskeletal Musculoskeletal: gait normal, generalized weakness, strength equal bilaterally - Psychiatric Psychiatric: A&O x's 3, appropriate affect, intact judgment & insight - Labs CBC & Chem 7: 06/10/20 06:39 06/10/20 06:39 Labs: Microbiology - Last 24 Hours (Table) 06/06/20 18:39 Blood Culture - Preliminary Blood No Growth after 96 hours Assessment and Plan Assessment: Covid 19 pneumonia Cough shortness of breath related to that Morbid obesity Plan: broad-spectrum antibiotics Continue Dexamethasone to finish 10 days of therapy Anticoagulants Continue Remdesevir IV to finish 5 days of therapy continue droplet and respiratory isolation Time with Patient: Greater than 30
[2020-06-11] MEDS: REMDESIVIR (EUA) 100 MG in SODIUM CHLORIDE 0.9% 250 ML IVPB SCH (14:10)
[2020-06-11 14:51] VITALS: BMI 50.3
--- NOTE | 2020-06-11 23:18 | PN ---
PROGRESS NOTE DATE OF SERVICE: 06/11/2020 REASON FOR FOLLOWUP: Acute COVID-19 pneumonia. INTERVAL HISTORY: The patient is currently afebrile. The patient is breathing comfortably. The patient denies having any chest pain. He did have a cough which is dry in nature. No nausea, no vomiting. No abdominal pain or diarrhea. PHYSICAL EXAMINATION: Blood pressure 172/90 with a pulse of 86, temperature 98.8. He is 95% on 2 L nasal cannula. General description is a middle-aged male lying in bed in no distress. RESPIRATORY SYSTEM: Unlabored breathing with decreased breath sounds at the base. No wheeze. HEART: S1, S2. Regular rate and rhythm. ABDOMEN: Soft. No tenderness. LABS: Hemoglobin 13.4, white count 9.6, creatinine 0.5. DIAGNOSTIC IMPRESSION AND PLAN: Patient with acute COVID-19 pneumonia in this patient who clinically responded to remdesivir, Lovenox, dexamethasone; to continue along with zinc and monitor his clinical course closely. MMODL / IJN: [id number] /
[2020-06-12 06:46] LABS: HGB 14.4 gm/dL (13.0-17.5); MCH 28.2 pg (25.0-35.0); MCV 88.2 fL (80.0-100.0); Mean Platelet Volume 7.7; Platelet Count 331 k/uL (150-450); RDW 13.2 % (11.5-15.5); WBC 10.4 k/uL (3.8-10.6)
[2020-06-12] MEDS: SODIUM CHLORIDE 0.9% 1,000 ML IV SCH (07:10)
[2020-06-12] MEDS: AZITHROMYCIN 500 MG TAB PO SCH (08:18)
[2020-06-12] MEDS: ZINC SULFATE 220 MG CAP PO SCH (08:18)
[2020-06-12] MEDS: ENOXAPARIN 40 MG/0.4 ML SYRINGE SQ SCH (08:18)
[2020-06-12] MEDS: FAMOTIDINE 20 MG TAB PO SCH (08:18)
[2020-06-12] MEDS: dexAMETHasone 4 MG TAB PO SCH (08:18)
[2020-06-12 08:56] VITALS: BP 177/86
[2020-06-12 09:08] VITALS: RESP 18; TEMP 96.2
[2020-06-12 09:15] LABS: African American GFR (CKD) 150.6 (60.0-200.0); Albumin 3.6 g/dL (3.80-4.90); Albumin/Globulin Ratio 1.5 (1.60-3.17); Anion Gap 7.3 mmol/L (4.00-12.00); Calcium 8.5 mg/dL (8.7-10.3); Carbon Dioxide 31.7 mmol/L (21.6-31.8); Globulin 2.4 g/dL (1.6-3.3); Potassium 4.6 mmol/L (3.5-5.5); Total Bilirubin 0.8 mg/dL (0.2-1.2)
[2020-06-12 09:27] VITALS: PULSE 64
--- NOTE | 2020-06-12 12:27 | XR ---
EXAMINATION TYPE: XR chest 1V portable DATE OF EXAM: 06/12/2020 COMPARISON: 06/10/2020 HISTORY: Shortness TECHNIQUE: Single frontal view of the chest is obtained. FINDINGS: Diffuse bilateral infiltrates are stable. Heart is enlarged. No definite sizable pleural e ffusion. No pneumothorax. Findings are stable. Chronic breasts rib cage deformity noted. IMPRESSION: 1. Severe cardiomegaly with diffuse bilateral multifocal infiltrates. Pneumonia favored over CHF.
--- NOTE | 2020-06-12 13:59 | PN ---
PROGRESS NOTE DATE OF SERVICE: 06/12/2020 REASON FOR FOLLOWUP: Acute COVID-19 infection. INTERVAL HISTORY: Patient is currently afebrile. Patient is breathing comfortably. Denies having any chest pain or shortness of breath. Minimal cough. No abdominal pain. No diarrhea. Overall feeling better. PHYSICAL EXAMINATION: Blood pressure 169/86, pulse of 64, temperature 96.8. He is 93% on room air. General description is a middle-aged male up in the chair in no distress. Respiratory system: Unlabored breathing, decreased breath sounds in the base, with no wheeze. Heart S1, S2. Regular rate and rhythm. Abdomen soft, no tenderness. LABS: Hemoglobin is 14.4, white count 9.4, creatinine 0.5. DIAGNOSTIC IMPRESSION AND PLAN: Patient with acute COVID-19 infection. The patient has completed a five day course of Remdesivir. Chest x-ray this morning with multifocal infiltrate, but no worsening. Patient ( ) for about a week in outpatient setting and close outpatient followup. MMODL / IJN: [id number] /
--- NOTE | 2020-06-12 14:32 | DS ---
DISCHARGE SUMMARY DATE OF SERVICE: 06/12/2020 FINAL DIAGNOSES: 1. Acute COVID-19 infection with bilateral interstitial pneumonia with acute hypoxic respiratory failure with possible sepsis, present on admission, improved. 2. History of cleft palate. 3. FULL CODE. 4. Hyponatremia. 5. Elevated LDH, CRP. 6. Elevated procalcitonin. DISCHARGE DISPOSITION: The patient will be discharged in stable condition with guarded prognosis. Total time taken: 35 minutes. HISTORY OF PRESENT ILLNESS: This 44-year-old gentleman with a past medical history multiple medical problems being followed by Dr. Iglesias in the outpatient setting admitted with COVID-19 pneumonia with interstitial pneumonia. Patient also had acute respiratory failure, which was treated with antibiotics and as well as Remdesivir. The patient improved significantly. Patient is extremely keen on going home at this time. Patient discharge cleared by Dr. Bangura, the lead oracle developer and Dr. Rueda, infectious Disease. Patient will be discharged in stable condition with guarded prognosis. On exam, vitals are stable. Cardiovascular: S1, S2. Respirations: Few scattered rhonchi. ABDOMEN: Soft. Nervous system: No focal deficits. DISCHARGE ADVICE AND MEDICATIONS: 1. Diet is cardiac diet. 2. Activity limited until followup. 3. Follow up with Dr. Iglesias in 2-3 days. 4. Follow up with Dr. Bangura as advised. 5. Follow up with Dr. Rueda as advised. 6. Hexadrol 6 mg p.o. daily. 7. Harleigh 220 mg p.o. daily. 8. Pepcid 20 mg p.o. b.i.d. 9. Ventolin 2 puffs t.i.d. and p.r.n. 10.Zithromax 500 mg daily for 5 days. 11.Follow up CBC, BMP with Dr. Iglesias. Once again, patient being discharged in stable condition. Guarded prognosis. MMODL / IJN: [id number] /
[2020-06-12] MEDS: REMDESIVIR (EUA) 100 MG in SODIUM CHLORIDE 0.9% 250 ML IVPB SCH (14:37)
== END 2020-06-12 17:04 | disposition home or self-care (01) | DRG 871 ==
LOC: EC 17:22 → 4SSUR 19:53
PROVIDERS: ADMIT Family Medicine; ATTEND Family Medicine
DX: A41.89 Other specified sepsis (principal); U07.1 COVID-19; J96.01 Acute respiratory failure with hypoxia; J12.89 Other viral pneumonia; E87.1 Hypo-osmolality and hyponatremia; Z68.43 Body mass index [BMI] 50.0-59.9, adult; E66.01 Morbid (severe) obesity due to excess calories; Z87.730 Personal history of (corrected) cleft lip and palate; Z88.0 Allergy status to penicillin
CPT/HCPCS: 36415; 71045; 80048; 80053; 82728; 83605; 83615; 83735; 84145; 85025; 85027; 85379; 85610; 85730; 86140; 87040; 87449; 87502; 93005; 96365; 96368; 99285